=== PATIENT | female | born 1995 | race Caucasian/White ===

== ENCOUNTER 2020-05-01 09:00 | Emergency (ER) | payer OTHER ==
[~2020-05-01] VITALS: Ht 170.2 cm; Wt 91.3 kg
[2020-05-01] MEDS ORDERED: NS 1,000 ML IV ONE (09:45)
[2020-05-01] MEDS ORDERED: KETOROLAC 30 MG/ML 1ML VIAL IV ONE (10:00)
[2020-05-01] MEDS ORDERED: ONDANSETRON 4MG/2ML VIAL IV ONE (10:00)
[2020-05-01 10:48] LABS: BASO # 0.1 10^3/uL (0.0-0.2); EOS # 0.1 10^3/uL (0.0-0.5); EOS % 1.3 % (0.0-3.0); HEMATOCRIT 41.4 % (36.0-47.0); HEMOGLOBIN 14.2 g/dl (12.0-15.5); LYMPH # 1.5 10^3/uL (1.5-5.0); LYMPH % 28.5 % (24.0-44.0); MEAN CORPUSCULAR HEMOGLOBIN 29.5 pg (27.0-33.0); MEAN CORPUSCULAR HGB CONC 34.3 g/dl (32.0-36.5); MEAN CORPUSCULAR VOLUME 86.1 fl (80.0-96.0); MONO # 0.4 10^3/uL (0.0-0.8); MONO % 6.7 % (0.0-5.0); NEUTROPHILS # 3.3 10^3/uL (1.5-8.5); NEUTROPHILS % 62.3 % (36.0-66.0); PLATELET COUNT, AUTOMATED 295 10^3/uL (150-450); RED BLOOD COUNT 4.81 10^6/uL (4.00-5.40); WHITE BLOOD COUNT 5.3 10^3/uL (4.0-10.0)
[2020-05-01 10:59] LABS: INR 0.97; PROTHROMBIN TIME 13.1 SECONDS (12.5-14.3)
[2020-05-01 11:00] LABS: PARTIAL THROMBOPLASTIN TIME 28.7 SECONDS (24.2-38.5)
--- NOTE | 2020-05-01 11:04 | REPVR ---
PROCEDURE INFORMATION: Exam: CT Head Without Contrast Exam date and time: 05/01/2020 10:55 AM Age: 24 years old Clinical indication: Pain; Headache TECHNIQUE: Imaging protocol: Computed tomography of the head without contrast. Radiation optimization: All CT scans at this facility use at least one of these dose optimization techniques: automated exposure control; mA and/or kV adjustment per patient size (includes targeted exams where dose is matched to clinical indication); or iterative reconstruction. COMPARISON: No relevant prior studies available. FINDINGS: Brain: No acute intracranial hemorrhage, cerebral edema, or midline shift. Cerebral ventricles: No hydrocephalus. Bones/joints: No acute fracture. Paranasal sinuses: There is no acute sinusitis. Mastoid air cells: Visualized mastoid air cells are well aerated. Orbital cavity: Unremarkable as visualized. Soft tissues: Unremarkable. IMPRESSION: No acute intracranial abnormality. Electronically signed by: Michael Brock On 05/01/2020 11:04:28 AM
[2020-05-01 11:11] LABS: ERYTHROCYTE SEDIMENTATION RATE 4 mm/hr (0-20)
[2020-05-01 11:23] LABS: ALBUMIN 3.7 GM/DL (3.2-5.2); ALT/SGPT 22 U/L (12-78); BILIRUBIN,DIRECT 0.3 MG/DL (0.0-0.2); BILIRUBIN,TOTAL 1.4 MG/DL (0.2-1.0); C REACTIVE PROTEIN QUANTITATIV < 0.30 MG/DL (0.00-0.30); FREE T4 1.08 NG/DL (0.76-1.46); MAGNESIUM LEVEL 2.3 MG/DL (1.8-2.4); THYROID STIMULATING HORMONE 0.988 uIU/ML (0.358-3.740); TOTAL PROTEIN 6.5 GM/DL (6.4-8.2)
[2020-05-01] MEDS ORDERED: KETO10TAB PO (11:33)
[2020-05-01 11:55] VITALS: BP 112/58
== END 2020-05-01 12:25 | disposition home or self-care (01) ==
LOC: M ED 09:00
DX: R51.9 Headache, unspecified (principal); R11.2 Nausea with vomiting, unspecified; J02.9 Acute pharyngitis, unspecified; Z20.828 Contact with and (suspected) exposure to other viral communicable diseases; F17.290 Nicotine dependence, other tobacco product, uncomplicated
CPT/HCPCS: 70450; 80047; 80076; 83735; 84439; 84443; 84702; 85025; 85610; 85652; 85730; 86140; 87880; 96361; 96374; 96375; 99284; J1885; J2405; U0003

== ENCOUNTER 2020-05-23 09:41 | Emergency (ER) | payer OTHER ==
[~2020-05-23] VITALS: Ht 170.2 cm; Wt 91.0 kg
[~2020-05-23 09:41] MED LIST: KETO10TAB PO
[2020-05-23 11:37] LABS: BASO # 0.1 10^3/uL (0.0-0.2); BASO % 0.6 % (0.0-1.0); EOS # 0.1 10^3/uL (0.0-0.5); EOS % 0.7 % (0.0-3.0); HEMATOCRIT 38.2 % (36.0-47.0); HEMOGLOBIN 12.8 g/dl (12.0-15.5); LYMPH # 1.7 10^3/uL (1.5-5.0); LYMPH % 20.2 % (24.0-44.0); MEAN CORPUSCULAR HEMOGLOBIN 28.9 pg (27.0-33.0); MEAN CORPUSCULAR HGB CONC 33.5 g/dl (32.0-36.5); MEAN CORPUSCULAR VOLUME 86.2 fl (80.0-96.0); MONO # 0.4 10^3/uL (0.0-0.8); MONO % 4.9 % (0.0-5.0); NEUTROPHILS # 6.2 10^3/uL (1.5-8.5); NEUTROPHILS % 73.4 % (36.0-66.0); PLATELET COUNT, AUTOMATED 243 10^3/uL (150-450); RED BLOOD COUNT 4.43 10^6/uL (4.00-5.40); WHITE BLOOD COUNT 8.4 10^3/uL (4.0-10.0)
[2020-05-23] MEDS ORDERED: ACETAMINOPHEN 500 MG TAB PO ONE (12:00)
--- NOTE | 2020-05-23 12:24 | REP ---
INDICATION: CHEST PAIN. COMPARISON: None. TECHNIQUE: AP portable chest FINDINGS: Lung brown are marginally adequate in degree of inflation without pleural effusion infiltrate atelectasis or mass. There is no pneumothorax or pneumomediastinum. The heart, mediastinal and hilar contours are normal for AP portable technique and this degree of inflation. The aorta and airway are unremarkable. Visualized bones intact no free air under the diaphragm. IMPRESSION: 1. No acute cardiopulmonary change. Lungs with only borderline adequate inflation. <Electronically signed by Chris Bob > 05/23/20 [id number]
[2020-05-23 14:04] VITALS: BP 131/69
--- NOTE | 2020-05-23 19:24 | ECGEPIP ---
[facility] - ED Test Date: 2020-05-23 Pat Name: TIA QUISPE Department: Room: - Gender: Female [employer] Mechanic: SUNNY : 1995 Requested By: Aidan Diaz Order Number: [id number] Reading MD: Missy Bedolla Measurements Intervals [place] Rate: 76 P: 20 RI: 160 QRS: 47 QRSD: 88 T: 38 QT: 388 QTc: 437 Interpretive Statements SINUS RHYTHM WITH SINUS ARRHYTHMIA POSSIBLE RIGHT VENTRICULAR CONDUCTION DELAY NO PRIOR Electronically Signed on 05-23-2020 19:24:41 EST by Missy Bedolla
== END 2020-05-23 14:06 | disposition home or self-care (01) ==
LOC: M ED 09:41
DX: R07.9 Chest pain, unspecified (principal); F17.200 Nicotine dependence, unspecified, uncomplicated; F11.21 Opioid dependence, in remission